=== PATIENT | female | born 1985 | race Caucasian/White ===

== ENCOUNTER 2017-05-05 18:52 | Emergency (ER) | payer OTHER ==
[~2017-05-05] VITALS: Ht 160 cm; Wt 77.6 kg
[2017-05-05 19:08] VITALS: BP 127/76
--- NOTE | 2017-05-05 19:46 | NUR ---
BIB WHEELCHAIR TO ER BED 5
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
--- NOTE | 2017-05-05 20:56 | NUR ---
Patient being evaluated by physician at bedside.
[2017-05-05] MEDS ORDERED: IBUPROFEN 600 MG TAB PO ONE (21:05)
[2017-05-05 21:36] VITALS: BP 122/78
--- NOTE | 2017-05-05 21:36 | NUR ---
Patient discharged with v/s stable. Written and verbal after care instructions given and explained. Patient alert, oriented and verbalized understanding of instructions. Ambulatory with steady gait. All questions addressed prior to discharge. ID band removed. Patient advised to follow up with PMD. Rx of MOTRIN 600 MG given. Patient educated on indication of medication including possible reaction and side effects. Opportunity to ask questions provided and answered.
== END 2017-05-05 21:36 | disposition home or self-care (01) ==
LOC: MED 18:52
DX: M25.562 Pain in left knee (principal)
CPT/HCPCS: 73562; 99284